=== PATIENT | female | born 1960 | race African-American/Black ===

== ENCOUNTER 2020-02-11 10:54 | Outpatient (CLI) | payer BC ==
--- NOTE | 2020-02-11 11:35 | RAD ---
XR Knee Rt 2 View HISTORY: Right knee pain FINDINGS: No fracture or dislocation is identified. No joint effusion is seen
== END 2020-02-11 10:55 | disposition home or self-care (01) ==
LOC: BICMAMMO 10:54
PROVIDERS: ATTEND Nurse Practitioner Family
DX: M25.561 Pain in right knee (principal)

== ENCOUNTER 2022-12-28 10:26 | Outpatient (CLI) | payer OTHER | END 2022-12-28 10:27 | disposition home or self-care (01) | LOC: BICMAMMO 10:26 | PROVIDERS: ATTEND Nurse Practitioner Family | DX: Z12.31 Encounter for screening mammogram for malignant neoplasm of breast (principal); Z80.3 Family history of malignant neoplasm of breast | CPT/HCPCS: 77063; 77067 ==

== ENCOUNTER 2023-01-18 10:55 | Emergency (ER) | payer OTHER ==
[2023-01-18] MEDS ORDERED: Ibuprofen 200 MG TAB ONE (12:01)
== END 2023-01-18 12:54 | disposition home or self-care (01) ==
LOC: ERS 10:55
DX: M19.041 Primary osteoarthritis, right hand (principal)

== ENCOUNTER 2024-02-22 13:19 | Outpatient (CLI) | payer OTHER | END 2024-02-22 13:20 | disposition home or self-care (01) | LOC: BICMAMMO 13:19 | PROVIDERS: ATTEND Nurse Practitioner Family | DX: Z12.31 Encounter for screening mammogram for malignant neoplasm of breast (principal); Z80.3 Family history of malignant neoplasm of breast | CPT/HCPCS: 77063; 77067 ==